=== PATIENT | female | born 1950 | race Caucasian/White ===

== ENCOUNTER 2018-06-14 13:31 | Emergency (ER) | payer OTHER, MEDICARE ==
[~2018-06-14] VITALS: Ht 152.4 cm; Wt 68.0 kg
[~2018-06-14 13:31] MED LIST: KEFLEX 250MG C250 MG PO
--- NOTE | 2018-06-14 14:16 | RADIOLOGY REPORT ---
EXAMINATION: XR CHEST CLINICAL INFORMATION: Weakness. Assess for pneumonia. COMPARISON: Chest x-ray 04/28/2012. TECHNIQUE: PA and lateral views of the chest were obtained. FINDINGS: The lung espinal are well expanded and appear clear bilaterally. The cardiac silhouette is normal. There are no pleural effusions or pneumothorax. The central pulmonary vasculature is normal. The hilar regions appear normal. The study redemonstrates a dextroscoliosis in the mid and lower thoracic spine. There are mild degenerative changes in the thoracic spine. IMPRESSION: 1. There are no acute cardiopulmonary findings.
[2018-06-14 14:58] LABS: ABSOLUTE BASOPHIL COUNT 0 /CUMM (0.0-0.2); ABSOLUTE EOSINOPHIL COUNT 0 /CUMM (0.0-0.7); ABSOLUTE GRANULOCYTE CT 5.2 /CUMM (1.4-6.5); ABSOLUTE LYMPH COUNT 2.5 /CUMM (1.2-3.4); ABSOLUTE MONOCYTE COUNT 0.5 /CUMM (0.10-0.60); BASOPHIL % 0.3 % (0.0-2.0); EOSINOPHIL % 0.6 % (0-5); GRANULOCYTE % 63.1 % (42.2-75.2); MEAN CORPUSCULAR HGB 25.7 PG (27.0-31.0); MEAN CORPUSCULAR HGB CONC 33.2 G/DL (33.0-37.0); MEAN CORPUSCULAR VOLUME 77.3 FL (81.0-99.0); MEAN PLATELET VOLUME 9.5 FL (7.4-10.4); PLATELET COUNT 274 /CUMM (130-400); RBC DISTRIBUTION WIDTH 15.6 % (11.5-14.5); RED BLOOD CELL CT 5.17 /CUMM (4.20-5.40); WHITE BLOOD CELL COUNT 8.3 /CUMM (4.8-10.8)
--- NOTE | 2018-06-14 16:02 | ED GENERAL ADULT ---
History of Present Illness General Chief Complaint: General Adult Stated Complaint: SEEN HERE TUESDAY FOR DEHYDRATION/WORSE TODAY Source: patient Exam Limitations: no limitations Allergies Coded Allergies: iodine (Severe, DIZZINESS 06/11/18) Penicillins (HIVES 06/11/18) aspirin (HIVES 06/11/18) Uncoded Allergies: IV CONTRAST (Severe, HIVES 04/28/12) Reconcile Medications Cephalexin (Keflex 250MG Cap) 250 MG CAP 1 CAP PO TID INSECT BITE Triage Note: PT TO ED C/O FEELING EXHAUSTED SINCE TUESDAY. STATES SHE WAS SEEN HERE TUESDAY, HAD IVF AND FELT BETTER. THIS AM STARTED TO FEEL WORSE AFTER DOING YARDWORK. DENIES N/V/D. Triage Nurses Notes Reviewed? yes Onset: Gradual Duration: hour(s): Timing: constant HPI: 67-year-old female with a history of hypertension, diabetes, hypothyroid presenting with fatigue over the past several hours. Patient states she also had fatigue 2 days ago and was seen in the emergency department for evaluation at that time. She received IV fluids after which time she felt better and was discharged home. She states that she was doing yard work today and had return of her fatigue after. Denies fevers, URI symptoms, cough, chest pain, shortness of breath, abdominal pain, nausea, vomiting, diarrhea, dysuria, headaches, neck pain, rashes, insect bites. (Xiomy Howe) Vital Signs & Intake/Output Vital Signs & Intake/Output Vital Signs Date Time Temp Pulse Resp B/P B/P Pulse O2 O2 Flow FiO2 Mean Ox Delivery Rate 06/14 1711 97.9 73 18 170/82 98 Room Air 06/14 1334 98.0 80 20 174/98 97 Room Air (Madi PADGETT,[facility]) Past History Travel History Traveled to [place] past 21 day No Medical History Any Pertinent Medical History? see below for history Cardiovascular: hypertension Endocrine: diabetes, hypothyroidism Surgical History Surgical History: non-contributory Psychosocial History What is your primary language Georgian Tobacco Use: Quit >30 days ago ETOH Use: denies use Illicit Drug Use: denies illicit drug use Family History Hx Contributory? No (Xiomy Howe) Review of Systems Review of Systems Constitutional: Reports: see HPI. EENTM: Reports: no symptoms. Respiratory: Reports: no symptoms. Cardiovascular: Reports: no symptoms. GI: Reports: no symptoms. Genitourinary: Reports: no symptoms. Musculoskeletal: Reports: no symptoms. Skin: Reports: no symptoms. Neurological/Psychological: Reports: no symptoms. Hematologic/Endocrine: Reports: no symptoms. Immunologic/Allergic: Reports: no symptoms. All Other Systems: Reviewed and Negative (Xiomy Howe) Physical Exam Physical Exam General Appearance: well developed/nourished, no apparent distress, alert, awake , comfortable Comments: Gen.: Well-nourished, well-developed, no acute distress. Head: Normocephalic, atraumatic. Eyes: Normal inspection bilaterally Ears: Normal inspection bilaterally Nose: Normal inspection Neck: Normal inspection Lungs: clear to auscultation bilaterally, normnal breath sounds Heart: regular rate and rhythm Abdomen: soft and non-tender Extremities: Normal inspection Neurologic: alert and oriented x3, steady gait, CN's II-XII intact, sensation intact, motor strength 5/5, reflexes 2+, cerebellar function intact Skin: warm and dry, no rashes Psychiatric: Normal mood and affect, no apparent delusions or hallucinations, behavior appropriate Core Measures ACS in differential dx? No CVA/TIA Diagnosis: No Sepsis Present: No Sepsis Focused Exam Completed? No (Xiomy Howe) Progress Differential Diagnoses I considered the following diagnoses in my evaluation of the patient: [infection vs metabolic derangement vs lyme vs ACS vs CVA vs thyroid imbalance] Initial ED EKG: normal sinus rhythm, no ST T wave changes (Xiomy Howe) Plan of Care: Orders Procedure Date/time Status TROPONIN LEVEL 06/14 1802 Complete EKG 06/14 1802 Active LYME TITRE 06/14 1601 Active URINALYSIS 06/14 1337 Complete TSH REFLEX 06/14 1337 Complete TROPONIN LEVEL 06/14 1337 Complete LIPASE 06/14 1337 Complete COMPREHENSIVE METABOLIC PANEL 06/14 1337 Complete CBC WITHOUT DIFFERENTIAL 06/14 133 Complete EKG 06/14 1337 Active Laboratory Tests 06/14/18 1815: Troponin I < 0.01 06/14/18 1607: Lyme Disease Antibody Pending 06/14/18 1445: Anion Gap 10, Estimated GFR > 60, BUN/Creatinine Ratio 18.8, Glucose 170 H, Calcium 10.0, Total Bilirubin 0.3, AST 30, ALT 43, Alkaline Phosphatase 111, Troponin I < 0.01, Total Protein 7.0, Albumin 4.0, Globulin 3.0, Albumin/ Globulin Ratio 1.3, Lipase 306 H, TSH &T3 &Free T4 Intrp 3.450, CBC w Diff NO MAN DIFF REQ, RBC 5.17, MCV 77.3 L, MCH 25.7 L, MCHC 33.2, RDW 15.6 H, MPV 9.5, Gran % 63.1, Lymphocytes % 30.4, Monocytes % 5.6, Eosinophils % 0.6, Basophils % 0.3, Absolute Granulocytes 5.2, Absolute Lymphocytes 2.5, Absolute Monocytes 0.5, Absolute Eosinophils 0, Absolute Basophils 0 06/14/18 1345: Urine Color STRAW, Urine Clarity CLEAR, Urine pH 7.0, Ur Specific [place] 1.010, Urine Protein TRACE H, Urine Ketones NEG, Urine Nitrite NEG, Urine Bilirubin NEG, Urine Urobilinogen 0.2, Ur Leukocyte Esterase TRACE H, Ur Microscopic SEDIMENT EXAMINED, Urine WBC 1-3 H, Ur Epithelial Cells FEW, Urine Bacteria RARE H, Urine Hemoglobin NEG, Urine Glucose 500 H EKG is non ischemic with neg trop x2. CXR unremarkable Labs and urine unremarkable, including normal thyroid function. No clear etiology for patient's fatigue, but low concern for emergent pathology. Lyme considered and sent. Symptoms may be related to new onset depression and pt will f/u with her PMD for re-eval. Also instrcuted to f/u with her manager medical Dr. Wilkins, although there is low concern for cardiac etiology. Given strict return precautions. (Xiomy Howe) (Madi PADGETT,[facility]) Departure Departure Disposition: HOME OR SELF CARE Condition: Stable Clinical Impression Primary Impression: Fatigue Referrals: Angel Plaza MD (PCP/Family) Additional Instructions: Follow-up with your manager medical in your primary care provider for further evaluation of your fatigue. Return to the emergency department for any new or worsening symptoms. You will receive a phone call if your Lyme testing is positive. Departure Forms: Customer Survey General Discharge Information (Xiomy Howe) PA/CALL OR CONTACT CENTRE MANAGER Co-Sign Statement Statement: ED Attending supervision documentation- [x] I saw and evaluated the patient. I have also reviewed all the pertinent lab results and diagnostic results. I agree with the findings and the plan of care as documented in the PA's/CALL OR CONTACT CENTRE MANAGER's documentation. [] I have reviewed the ED Record and agree with the PA's/CALL OR CONTACT CENTRE MANAGER's documentation. [] Additions or exceptions (if any) to the PAs/CALL OR CONTACT CENTRE MANAGER's note and plan are summarized below: [] 67-year-old woman presents because she is having generalized weakness and fatigue for the past few days. She was recently seen in the emergency room for the same thing. She has a history of hypertension, diabetes and hypothyroidism. Her lab work is benign. Vital signs are good. The patient's symptoms are very nonspecific yet there also related to exertion but only sometimes. The patient reports that yesterday she had no symptoms even with exertion and today she does have symptoms. Symptoms are very sporadic. Never associated with chest pain, shortness of breath or diaphoresis. The patient has no known coronary artery disease history in herself though has family history of coronary artery disease and she is a diabetic. We will do a repeat troponin to make sure that there are no signs of ACS. The patient has been made aware that she needs to follow-up with PCP as well as cardiology if her workup is negative. She does agree to repeat troponin. The patient always feels better after IV fluids which was against any cardiac pathology. Plan: We will discharge the patient with outpatient follow-up with PCP and cardiology. Though the patient does not have classic exertional symptoms she does feel fatigued so we will have her seen by cardiology because of her age and diabetes. (Madi PADGETT,[facility]) Critical Care Note Critical Care Note Critical Care Time: non-applicable (Xiomy Howe)
[2018-06-14 17:11] VITALS: BP 170/82
== END 2018-06-14 19:00 ==
LOC: ERH 13:31
PROVIDERS: Physician Assistant
DX: R53.83 Other fatigue (principal); I10 Essential (primary) hypertension; E11.9 Type 2 diabetes mellitus without complications; E03.9 Hypothyroidism, unspecified; Z87.891 Personal history of nicotine dependence
CPT/HCPCS: 86618; 71046; 81001; 93005; 93010